=== PATIENT | female | born 1945 | race Caucasian/White ===

== ENCOUNTER 2019-01-30 07:58 | Emergency (ER) | payer MEDICARE ==
[~2019-01-30] VITALS: Ht 170.2 cm; Wt 63.6 kg
[~2019-01-30 07:58] MED LIST: ADVAIR 500/501 DISK INH; AMERGE2.5 MG PO; ASPIRIN EC81 M1 PO; BONIVA150 MG PO; LIPITOR40 MG PO; OS-CAL500 MG PO; PERCOCET 10/3251 TA1 PO; PHENERGAN25 MG RC; PROTONIX40 MG PO; SYNTHROID100 MCG PO; ZOFRAN ODT4 MG/UDTAB PO
[2019-01-30 08:05] VITALS: Ht 170.2 cm; Wt 63.6 kg
[2019-01-30 08:45] LABS: BASOPHILS 0.5 % (0-2); EOSINOPHILS 9.2 % (0-7); HEMATOCRIT 39.3 % (36.0-48.0); HEMOGLOBIN 12.7 g/dL (12-16); IMMATURE GRANULOCYTES 0.2 % (0-5); LYMPHOCYTES 18.1 % (15-50); MCH 33.1 pg (26.0-34.0); MCHC 32.3 g/dL (31.0-37.0); MCV 102.3 fL (80.0-100.0); MEAN PLATELET VOLUME 10.2 fL (7.4-10.4); MONOCYTES 9.5 % (2-11); NEUTROPHILS 62.5 % (40-80); PLATELET COUNT 199 10x3/uL (130-400); RBC 3.84 10x6/uL (4.00-5.40); RDW 12.1 % (11.5-14.5); WBC 5.6 10x3/uL (4.8-10.8)
[2019-01-30 08:58] LABS: ANION GAP 12.7 mmol/L (8-16); BILIRUBIN - TOTAL 0.43 mg/dL (0.2-1.3); CALCIUM 8.8 mg/dL (8.5-10.1); CARBON DIOXIDE 28.8 mmol/L (21.0-32.0); CREATININE - SERUM 1.2 mg/dL (0.6-1.3); POTASSIUM - SERUM 3.5 mmol/L (3.5-5.1); PROTEIN - SERUM 6.6 g/dL (6.4-8.2)
[2019-01-30 09:00] LABS: APPEARANCE HAZY (CLEAR); COLOR DK YELLOW (YELLOW)
[2019-01-30 09:01] LABS: BILIRUBIN NEGATIVE (NEGATIVE); EPITHELIAL CELLS 0-5 /hpf (0-5); GLUCOSE NEGATIVE (NEGATIVE); KETONE MODERATE mg/dL (NEGATIVE); NITRITE POSITIVE (NEGATIVE); PROTEIN TRACE mg/dL (NEGATIVE); RED CELLS - URINE 0-5 /hpf (0-5); WHITE CELLS - URINE 0-5 /hpf (0-5)
[2019-01-30 09:02] LABS: BACTERIA MODERATE /hpf (NONE SEEN); MUCUS <1+ /lpf (NONE SEEN)
[2019-01-30 11:17] LABS: MAGNESIUM - SERUM 1.6 mg/dL (1.8-2.4)
[2019-01-30] MEDS ORDERED: CLEOCIN HCL300 MG PO (12:32)
[2019-01-30] MEDS ORDERED: HYDROCODON-ACE1 EAC2 PO (12:32)
[2019-01-30 15:50] VITALS: BP 114/69
== END 2019-01-30 15:51 | disposition home or self-care (01) ==
LOC: D.ER 07:58
PROVIDERS: Emergency Medicine
DX: R10.32 Left lower quadrant pain (principal); E83.42 Hypomagnesemia